=== PATIENT | male | born 1975 | race Caucasian/White ===

== ENCOUNTER 2023-08-04 08:54 | Emergency (ER) | payer OTHER ==
[~2023-08-04] VITALS: Ht 182.9 cm; Wt 79.5 kg
[2023-08-04 08:55] VITALS: BP 145/85; PULSE 62; RESP 16; TEMP 98.2
[2023-08-04] MEDS ORDERED: SULF-261 PO (09:24)
[2023-08-04] MEDS ORDERED: CEPH-558 PO (09:24)
== END 2023-08-04 09:30 | disposition home or self-care (01) ==
LOC: EMS 09:12
DX: L08.9 Local infection of the skin and subcutaneous tissue, unspecified (principal)
CPT/HCPCS: 99283; Z7502